=== PATIENT | female | born 1995 | race Two or more races ===

== ENCOUNTER → 2019-10-06 | Outpatient (CLI) | payer OTHER ==
--- NOTE | 2019-10-06 16:36 | REP ---
Clinical: Acute chest pain . Comparison: None . Technique: PA and lateral. Findings: The mediastinum and cardiac silhouette are normal. The lung carrion are clear and without acute consolidation, effusion, or pneumothorax. The skeletal structures are intact and normal. Impression: 1. No acute cardiopulmonary process. Electronically Signed by Yovani Nix MD 10/06/2019 04:26 P
== END ==
LOC: M LRY 16:16
PROVIDERS: ATTEND Nurse Practitioner Family
DX: R07.9 Chest pain, unspecified (principal)

== ENCOUNTER → 2019-10-06 | Outpatient (REF) | payer OTHER ==
[2019-10-06 17:48] LABS: BASO % 0.4 % (0.0-1.0); EOS # 0.2 10^3/uL (0.0-0.5); EOS % 2.1 % (0.0-3.0); HEMATOCRIT 42.7 % (36.0-47.0); HEMOGLOBIN 13.4 g/dl (12.0-15.5); LYMPH # 3.1 10^3/uL (1.5-5.0); LYMPH % 29.1 % (24.0-44.0); MEAN CORPUSCULAR HEMOGLOBIN 30.7 pg (27.0-33.0); MEAN CORPUSCULAR HGB CONC 31.4 g/dl (32.0-36.5); MEAN CORPUSCULAR VOLUME 97.7 fl (80.0-96.0); MONO # 0.9 10^3/uL (0.0-0.8); MONO % 8.8 % (0.0-5.0); NEUTROPHILS # 6.4 10^3/uL (1.5-8.5); NEUTROPHILS % 59.1 % (36.0-66.0); PLATELET COUNT, AUTOMATED 297 10^3/uL (150-450); RED BLOOD COUNT 4.37 10^6/uL (4.00-5.40); WHITE BLOOD COUNT 10.7 10^3/uL (4.0-10.0)
[2019-10-06 18:24] LABS: ALBUMIN 3.9 GM/DL (3.2-5.2); ALT/SGPT 30 U/L (12-78); BILIRUBIN,TOTAL 0.2 MG/DL (0.2-1.0); BLOOD UREA NITROGEN 15 MG/DL (7-18); CALCIUM LEVEL 9.4 MG/DL (8.5-10.1); CARBON DIOXIDE LEVEL 27 MEQ/L (21-32); CHLORIDE LEVEL 106 MEQ/L (98-107); CREATININE FOR GFR 0.74 MG/DL (0.55-1.30); GLOMERULAR FILTRATION RATE > 60.0 (>60); GLUCOSE, FASTING 68 MG/DL (70-100); POTASSIUM SERUM 4.1 MEQ/L (3.5-5.1); SODIUM LEVEL 138 MEQ/L (136-145); THYROID STIMULATING HORMONE 0.746 uIU/ML (0.358-3.740); TOTAL PROTEIN 7.7 GM/DL (6.4-8.2); TROPONIN I < 0.02 NG/ML (< 0.10)
== END ==
LOC: M SFHCLERA 16:12
PROVIDERS: ATTEND Nurse Practitioner Family
DX: R07.9 Chest pain, unspecified (principal)
CPT/HCPCS: 71046; 80053; 83735; 84443; 84484; 85025; 85379; 93005; G0463

== ENCOUNTER → 2019-10-21 | Outpatient (CLI) | payer OTHER ==
--- NOTE | 2019-10-21 12:43 | REP ---
Two-view chest: O 10/21/2019. Indication: Cough. Comparison: 10/06/2019. Findings: The lungs are clear. There is no pleural effusion or pneumothorax. The cardiomediastinal silhouette is unremarkable. Impression: No acute cardiopulmonary process. Electronically Signed by Jayro Luna DO 10/21/2019 12:35 P
== END ==
LOC: M LRY 12:02
PROVIDERS: ATTEND Nurse Practitioner Family
DX: R05 Cough (principal)

== ENCOUNTER → 2019-10-21 | Outpatient (REF) | payer OTHER | LOC: M SFHCLERA 12:50 | PROVIDERS: ATTEND Nurse Practitioner Family | DX: J02.9 Acute pharyngitis, unspecified (principal) ==

== ENCOUNTER 2019-10-23 14:28 | Emergency (ER) | payer OTHER ==
[~2019-10-23] VITALS: Ht 154.9 cm; Wt 69.5 kg
[2019-10-23] MEDS ORDERED: BENZ-18 (14:43)
[2019-10-23] MEDS ORDERED: PROAAER10 (14:43)
[2019-10-23] MEDS ORDERED: ZOFR4TAB16 PO (14:43)
[2019-10-23 16:32] LABS: BASO % 0.5 % (0.0-1.0); EOS # 0.3 10^3/uL (0.0-0.5); EOS % 3.8 % (0.0-3.0); HEMATOCRIT 45.1 % (36.0-47.0); HEMOGLOBIN 14.4 g/dl (12.0-15.5); LYMPH # 1.5 10^3/uL (1.5-5.0); LYMPH % 23.1 % (24.0-44.0); MEAN CORPUSCULAR HEMOGLOBIN 31.2 pg (27.0-33.0); MEAN CORPUSCULAR HGB CONC 31.9 g/dl (32.0-36.5); MEAN CORPUSCULAR VOLUME 97.8 fl (80.0-96.0); MONO # 0.8 10^3/uL (0.0-0.8); MONO % 12.1 % (0.0-5.0); NEUTROPHILS % 60.2 % (36.0-66.0); PLATELET COUNT, AUTOMATED 252 10^3/uL (150-450); RED BLOOD COUNT 4.61 10^6/uL (4.00-5.40); WHITE BLOOD COUNT 6.6 10^3/uL (4.0-10.0)
[2019-10-23 17:16] LABS: ALBUMIN 3.8 GM/DL (3.2-5.2); ALT/SGPT 21 U/L (12-78); BILIRUBIN,DIRECT < 0.1 MG/DL (0.0-0.2); BILIRUBIN,TOTAL 0.4 MG/DL (0.2-1.0); BLOOD UREA NITROGEN 14 MG/DL (7-18); CALCIUM LEVEL 9.2 MG/DL (8.5-10.1); CARBON DIOXIDE LEVEL 20 MEQ/L (21-32); CHLORIDE LEVEL 108 MEQ/L (98-107); GLOMERULAR FILTRATION RATE > 60.0 (>60); GLUCOSE, FASTING 87 MG/DL (70-100); LIPASE 56 U/L (73-393); POTASSIUM SERUM 5.1 MEQ/L (3.5-5.1); SODIUM LEVEL 135 MEQ/L (136-145); TOTAL PROTEIN 7.9 GM/DL (6.4-8.2)
[2019-10-23] MEDS ORDERED: ACETAMINOPHEN 325 MG TAB PO ONE (17:30)
[2019-10-23] MEDS ORDERED: NS 1,000 ML IV ONE (17:30)
[2019-10-23] MEDS ORDERED: ONDANSETRON 4MG/2ML VIAL (J2405) IV ONE (17:45)
[2019-10-23 17:59] LABS: CK-MB VALUE MASS < 1.0 NG/ML (<3.6); CPK CREATINE PHOSPHOKINASE 164 U/L (26-192); MB/CK RELATIVE INDEX 0.61 (< OR =4); TROPONIN I < 0.02 NG/ML (< 0.10)
--- NOTE | 2019-10-23 18:11 | REP ---
Chest x-ray: Two views. History: abdominal pain . Comparison study: October 21, 2019 . Findings: The lungs are well inflated and free of infiltrate. The pleural angles are sharp. The heart size is normal. Pulmonary vasculature is not increased. No significant bony abnormality is seen. Impression: Negative chest x-ray. Electronically Signed by Tyler De Oliveira MD 10/23/2019 06:03 P
[2019-10-23 19:30] VITALS: BP 118/62
[2019-10-23] MEDS ORDERED: KETOROLAC 30 MG/ML VIAL (J1885) IV ONE (19:30)
[2019-10-23] MEDS ORDERED: ONDA4TAB6 PO (20:01)
--- NOTE | 2019-10-23 20:22 | ECGEPIP ---
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
== END 2019-10-23 20:49 | disposition home or self-care (01) ==
LOC: M ED 14:28
DX: M94.0 Chondrocostal junction syndrome [Tietze] (principal); J06.9 Acute upper respiratory infection, unspecified; R11.2 Nausea with vomiting, unspecified
CPT/HCPCS: 71046; 80048; 80076; 81001; 81002; 81025; 82550; 82553; 82948; 83690; 84484; 84702; 85025; 85379; 87086; 93005; 96361; 96374; 96375; 99284; G0463; J1885; J2405

== ENCOUNTER → 2019-10-23 | Outpatient (REF) | payer OTHER ==
[~2019-10-23] MED LIST: BENZ-18; ONDA4TAB6 PO; PROAAER10; ZOFR4TAB16 PO
== END ==
LOC: M SFHCLERA 12:36
PROVIDERS: ATTEND Nurse Practitioner Family
DX: R11.2 Nausea with vomiting, unspecified (principal)

== ENCOUNTER → 2019-11-19 | Outpatient (CLI) | payer OTHER ==
--- NOTE | 2019-11-21 14:35 | HOLTMON ---
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 Only 13 hours and 33 minutes were usable for analysis due to extensive artifacts. Baseline mechanis was SR with normal AV conduction and narrow QRS complex. Minimum HR was 44 bpm, mean HR 97 bpm and maximum HR 128 bpm. There were no pauses. There were rare PAC's. 4 manual transmissions with reported activity/symptoms "went to bed, woke up, nausea and nausea/dizziness" all corresponded to SR with sinus arrhythmia. Overall unremarkable Holter monitor. Electronically Signed on 11-21-2019 14:34:54 EST by Alix Morrissey
== END ==
LOC: M EKG 17:21
PROVIDERS: ATTEND Family Medicine
DX: R00.0 Tachycardia, unspecified (principal)

== ENCOUNTER → 2020-01-22 | Outpatient (CLI) | payer OTHER ==
--- NOTE | 2020-01-22 09:46 | PFTRPT ---
Height: 61.00 Inches Weight: 150.00 Lbs BSA: 1.67 Diagnosis: J40 DATE OF PROCEDURE: 01/22/2020 ORDERING PROVIDER: Dr. Dalton Spirometry: Pre and post bronchodilator study of excellent technical quality. Forced vital capacity normal. FEV1 in proportion. Obstructive index is, therefore, normal. Flow Volume Loop: Expiratory limb of the flow volume loop is normal. No significant bronchodilator response identified. Lung Volumes: Total lung capacity normal. Residual volume in proportion. Diffusing Capacity: Diffusing capacity normal. Hemoglobin: Hemoglobin acceptable at 12.6. Airway Mechanics: Airway resistance and conductance are normal. IMPRESSION: Normal study. MTDD
== END ==
LOC: M CARPUL 09:10
PROVIDERS: ATTEND Family Medicine
DX: J40 Bronchitis, not specified as acute or chronic (principal)
CPT/HCPCS: 88738; 94060; 94726; 94729; G0463

== ENCOUNTER → 2020-01-27 | Outpatient (CLI) | payer OTHER ==
[~2020-01-27] MED LIST changes: +METHACHOLINE KIT (J7674) INH ONE
--- NOTE | 2020-01-27 08:43 | PFTRPT ---
Height: 61.00 Inches Weight: 150.00 Lbs BSA: 1.67 DATE OF PROCEDURE: 01/27/2020 ORDERED BY: Dr. Dalton INTERPRETATION: Study of excellent technical quality. Under protocol, methacholine was administered. At a dose of 0.025 mg or 0.125 CDUs, a 25% decline in the FEV1 was noted. Flow rates did return to baseline post bronchodilator administration. IMPRESSION: Positive methacholine challenge study. MTDD
== END ==
LOC: M CARPUL 07:54
PROVIDERS: ATTEND Family Medicine
DX: J40 Bronchitis, not specified as acute or chronic (principal)

== ENCOUNTER → 2020-02-16 | Outpatient (CLI) | payer OTHER ==
[~2020-02-16] MED LIST changes: -METHACHOLINE KIT (J7674) INH ONE
--- NOTE | 2020-02-17 08:27 | REP ---
MRI LUMBAR SPINE WITHOUT CONTRAST: HISTORY: Low back pain. No comparison lumbar imaging. TECHNIQUE: Sagittal and axial T1 and T2-weighted scans are acquired in the usual fashion with and without fat saturation. Sequences include spin echo, turbo spin-echo, and STIR imaging sequences. MRI FINDINGS: Lumbar vertebral body heights are preserved. Alignment is normal. There is no evidence of spondylolysis or spondylolisthesis. No extra spinal abnormalities observed. The tip of the conus medullaris is normal in position and appearance at L1. Axial and sagittal images at L1-2, L2-3 show no abnormality. There is no evidence of disc protrusion, central canal stenosis, or foraminal narrowing. At L3-4, there is mild degenerative narrowing of the disc. No disc protrusion is seen. No foraminal narrowing is appreciated. No thecal sac compression. At L4-5, there is a straight posterior disc margin without thecal sac compression or focal disc protrusion. No foraminal stenosis is seen. There is minimal facet hypertrophy. At L5-S1, there is also mild facet hypertrophy. There is central disc bulging. This does not compress the thecal sac. No foraminal stenosis or central canal stenosis is seen. IMPRESSION: Mild facet hypertrophy at L4-5 and L5-S1. Minimal narrowing of the 3-4 disc. Otherwise negative. Electronically Signed by Tyler De Oliveira MD 02/17/2020 09:00 A
== END ==
LOC: M RAD 16:00
PROVIDERS: ATTEND Family Medicine
DX: M54.5 Low back pain (principal)